=== PATIENT | female | born 1940 | race Caucasian/White ===

== ENCOUNTER 2019-08-13 18:46 | Emergency (ER) | payer MEDICARE, OTHER ==
--- OUTSIDE RECORDS SUMMARY | 2019-08-13 18:49 | XMS REPORT ---
Author Author [facility] Address Unknown Phone Unavailable Care Team Providers Care Assembly Press Operator Name Role Phone ETELVINA CASTILLO Unavailable Unavailable Problems This patient has no known problems. Allergies, Adverse Reactions, Alerts This patient has no known allergies or adverse reactions. Medications This patient has no known medications. Results Test Description Test Time Test Comments Text Results Atomic Results Result Comments ANG, TUNNEL CATH CENTRAL INS W/PORT C 2019-07-20 12:14:00 Reason for Exam:->Z85.72 FINAL REPORT Right internal jugular chest port insertion History: Lymphoma. Modality: Sonography and fluoroscopy. Sedation: Versed 0.5 mg and fentanyl 25 mcg given intravenously for conscious sedation. Vital signs were monitored throughout the procedure by a nurse, and remained stable. Physician intra-service time was 20 minutes. Passenger Booking Clerk: Daljit Hair MD Marketing Support Specialist: None. Approach: Right internal jugular vein Estimated blood loss: < 5 cc. Specimen: None. Fluoroscopy Time: 0.1 min.Reference Air Kerma (Ka, r): 0.1 mGy. Technique: Informed written consent was obtained. Discussion of risks, benefits, and alternatives were made with the patient. The patient expressed understanding and agreed to proceed. A universal timeout was performed prior to starting the procedure. All elements maximal sterile barrier technique was utilized for this procedure, including utilization of sterile scrub solution for skin prep, a large sterile sheet to cover the areas of the patient that were not prepped, and hand hygiene, mask, head covering, and sterile gown for performing radiologist and scrub technologist. The skin was anesthetized with 2% lidocaine. Ultrasound evaluation showed a patent and compressible right internal jugular vein, which was punctured under direct real-time ultrasound guidance with a micropuncture needle. An ultrasound image was saved to PACS. A 0.018 inch wire was placed through the needle into the right atrium. A 4 Trin[place] micropuncture sheath was placed. A subcutaneous tunnel and pocket were created in the right anterior chest wall by blunt dissection. The pocket was flushed with antibiotic solution. A 6F Bard port was placed within the pocket and the catheter brought through the tunnel. The catheter was cut at 20 cm. A peel-away sheath was placed in the right IJ vein and the catheter was advanced through the sheath, with its distal tip terminating in the cavoatrial junction. The peel-away sheath was removed. The port was flushed and aspirated easily following placement. The skin incision was closed with 3-0 running subcuticular Monocryl and Steri- Strips. The small jugular incision site was closed using Steri-Strips. The patient tolerated the procedure well and left the department in the same condition. Results: Spot radiograph of the chest demonstrates the new right IJ Port-A-Cath to lie in the expected position with its tip overlying the cavoatrial junction. Impression: Successful, uncomplicated placement of a right internal jugular chest port. The port is ready for immediate use. Signed: Daljit Hair MDReport Verified Date/Time: 07/20/2019 12:14:57 Reading Location: [facility] Radiology Reading Room /APTT 2019-07-20 11:13:00 PROTIME (BEAKER) (test iofe=408) 10.7 sec 9.3-12.0 INR (BEAKER) (test dbor=692) 1.0 <=5.9 PARTIAL THROMBOPLASTIN TIME (BEAKER) (test nknc=171) 23.7 sec 23.0-35.0 RECOMMENDED COUMADIN/WARFARIN INR THERAPY RANGESSTANDARD DOSE: 2.0 - 3.0 Inclu stanislav: PROPHYLAXIS for venous thrombosis, systemic embolization; TREATMENT for eliecer ous thrombosis and/or pulmonary embolus.HIGH RISK: Target INR is 2.5-3.5 for pat ients with mechanical heart valves.Final Information (Auto Output)Final Informat ion (Auto Output)Final Information (Auto Output)
--- NOTE | 2019-08-13 19:10 | NUR ---
[employer] WORK[employer] NOTIFIED, SPOKE TO NAMITA; CASE RELEASED BY [employer] WORKER AT 192, CASE #[id number]
--- NOTE | 2019-08-13 19:15 | NUR ---
PTS PCP, DR. AUDI GUTIERREZ , NOTIFIED AND WILL SIGN CERTIFICATE
--- NOTE | 2019-08-13 19:18 | NUR ---
[facility] NOTIFIED PER SPOUSE REQUEST AT [phone]; SPOKE TO DEYVI; [address] [place] [address]
--- NOTE | 2019-08-13 19:27 | NUR ---
[employer] NOTIFIED, SPOKE TO MADHU Spence, PATIENT NOT ACCEPTED ORGAN DONOR
--- NOTE | 2019-08-13 19:28 | NUR ---
[employer] CASE # [id number]
== END 2019-08-13 22:15 | disposition expired ==
LOC: ER 18:46
DX: I46.9 Cardiac arrest, cause unspecified (principal); R09.02 Hypoxemia; C85.90 Non-Hodgkin lymphoma, unspecified, unspecified site; Z66 Do not resuscitate